=== PATIENT | male | born 1940 | race Caucasian/White ===

== ENCOUNTER → 2025-10-16 10:48 | Outpatient (REF) | payer OTHER, SELFPAY | LOC: RAD 10:48 | PROVIDERS: ATTENDING PHYSICIAN Internal Medicine | DX: M54.10 Radiculopathy, site unspecified (principal) | CPT/HCPCS: 72040 ==

== ENCOUNTER → 2025-10-20 15:26 | Outpatient (REF) | payer OTHER, SELFPAY | LOC: EMG 15:26 | PROVIDERS: ATTENDING PHYSICIAN Internal Medicine | DX: M54.10 Radiculopathy, site unspecified (principal); R20.0 Anesthesia of skin | CPT/HCPCS: 95886; 95911 ==